=== PATIENT | male | born 1965 | race Caucasian/White ===

== ENCOUNTER 2017-09-05 21:25 | Emergency (ER) | payer OTHER ==
[~2017-09-05] VITALS: Ht 180.3 cm; Wt 65.3 kg
[~2017-09-05 21:25] MED LIST: AZIT250 PO; CRUTCH4 USE; CYCL10 PO; HYDACE5 PO; IBUP800 PO; NAPR500 PO; PENVK500 PO; PHENY100ER PO
[2017-09-05] MEDS ORDERED: Zithromax250 MG PO (21:49)
[2017-09-05] MEDS ORDERED: BENZ100A PO (21:49)
[2017-09-05] MEDS ORDERED: CLARITIN10 MG PO (21:50)
== END 2017-09-05 22:05 | disposition home or self-care (01) ==
LOC: ER 21:25
DX: J44.1 Chronic obstructive pulmonary disease with (acute) exacerbation (principal)
CPT/HCPCS: 99283

== ENCOUNTER 2020-12-15 17:53 | Inpatient (IN) | payer OTHER ==
[~2020-12-15] VITALS: Ht 172.7 cm; Wt 95.2 kg
[~2020-12-15 17:53] MED LIST changes: +BENZ100A PO; +CLARITIN10 MG PO; +Zithromax250 MG PO
[2020-12-15 18:31] LABS: BASOPHILS ABSOLUTE AUTO 0.01 K/mm3 (0.00-0.23); BASOPHILS PERCENT AUTO 0 % (0-2); EOSINOPHILS ABSOLUTE AUTO 0.01 K/mm3 (0.00-0.68); EOSINOPHILS PERCENT AUTO 0 % (0-6); Hematocrit 54.7 % (37.0-53.0); Hemoglobin 17.9 g/dL (13.5-17.5); IMMATURE GRAN ABSOLUTE AUTO 0.02 K/mm3 (0.00-0.10); IMMATURE GRAN PERCENT AUTO 0 % (0-1); LYMPHOCYTES ABSOLUTE AUTO 0.77 K/mm3 (0.84-5.20); LYMPHOCYTES PERCENT AUTO 12 % (21-46); MONOCYTES ABSOLUTE AUTO 1.01 K/mm3 (0.16-1.47); MONOCYTES PERCENT AUTO 15 % (4-13); Mean Corpuscular HGB 34.4 pg (26.0-34.0); Mean Corpuscular HGB Conc 32.7 g/dL (31.5-36.5); Mean Corpuscular Volume 105 fL (80-100); Mean Platelet Volume 12.1 fL (9.1-12.4); NEUTROPHILS ABSOLUTE AUTO 4.77 K/mm3 (1.96-9.15); NEUTROPHILS PERCENT AUTO 72 % (41-73); NRBC ABSOLUTE 0.04 K/mm3 (0.00-0.02); NRBC Auto 0.6 /100 WBC (0.0-0.2); Platelet Count 146 K/mm3 (150-400); RDW Coefficient Variation 19.4 % (11.7-14.2); Red Blood Cell Count 5.21 M/mm3 (4.30-5.90); White Blood Cell Count 6.59 K/mm3 (4.00-11.30)
[2020-12-15 18:50] LABS: Alanine Aminotransfer (ALT/SGP 122 U/L (12-78); Albumin, Blood 3.2 g/dL (3.4-5.0); Albumin/Globulin Ratio 0.7 (0.8-1.8); Alk Phos 139 U/L (50-136); Anion Gap 3 mmol/L (6-16); Aspartate Aminotrans (AST/SGOT 116 U/L (12-37); Bilirubin, Total 1.4 mg/dL (0.1-1.0); Blood Urea Nitrogen 44 mg/dL (8-24); Bun/Creatinine Ratio 60.3 (12.0-20.0); CO2, Blood 33 mmol/L (21-32); Calcium, Blood 9.1 mg/dL (8.5-10.1); Chloride, Blood 103 mmol/L (98-108); Creatinine, Blood 0.73 mg/dL (0.60-1.20); Globulin, Blood 4.5 g/dL (2.2-4.0); Glomerular Filtration Rate >60 (60-); Glucose, Blood 119 mg/dL (70-99); Potassium, Blood 4.7 mmol/L (3.5-5.5); Sodium, Blood 139 mmol/L (136-145); Total Protein, Blood 7.7 g/dL (6.4-8.2); Troponin I 0.059 ng/mL (0.000-0.040)
[2020-12-15 19:06] LABS: Base Excess Venous 6.5 mmol/L; Bicarbonate Venous 26.3 mmol/L (24.0-30.0); PCO2 Venous 81.2 mmHg (38-42); PO2 Venous 58.5 mmHg (38-42); pH Blood Venous 7.23 (7.34-7.37)
[2020-12-15 19:30] LABS: SARS-Cov-2 (COVID-19) PCR, MMC NEGATIVE (NEGATIVE)
[2020-12-15 22:24] LABS: Source, Urine Clean Catch
[2020-12-15 22:29] LABS: Appearance, Urine Clear (Clear); Bilirubin, Urine Neg (Neg); Blood, Urine Neg (Neg); Color, Urine Yellow (P-Yellow); Glucose Qualitative, Urine Neg (Neg); Ketones, Urine Neg (Neg); Leukocyte Esterase, Urine Neg (Neg); Nitrite, Urine Neg (Neg); Protein, Urine Neg (Neg); Urobilinogen, Urine NORM (Normal)
[2020-12-16 02:34] LABS: BASOPHILS ABSOLUTE AUTO 0.01 K/mm3 (0.00-0.23); BASOPHILS PERCENT AUTO 0 % (0-2); EOSINOPHILS PERCENT AUTO 0 % (0-6); Hematocrit 48.7 % (37.0-53.0); Hemoglobin 16.3 g/dL (13.5-17.5); IMMATURE GRAN ABSOLUTE AUTO 0.03 K/mm3 (0.00-0.10); IMMATURE GRAN PERCENT AUTO 1 % (0-1); LYMPHOCYTES ABSOLUTE AUTO 0.34 K/mm3 (0.84-5.20); LYMPHOCYTES PERCENT AUTO 6 % (21-46); MONOCYTES ABSOLUTE AUTO 0.48 K/mm3 (0.16-1.47); MONOCYTES PERCENT AUTO 9 % (4-13); Mean Corpuscular HGB 34.5 pg (26.0-34.0); Mean Corpuscular HGB Conc 33.5 g/dL (31.5-36.5); Mean Corpuscular Volume 103 fL (80-100); Mean Platelet Volume 11.6 fL (9.1-12.4); NEUTROPHILS ABSOLUTE AUTO 4.79 K/mm3 (1.96-9.15); NEUTROPHILS PERCENT AUTO 85 % (41-73); NRBC ABSOLUTE 0.04 K/mm3 (0.00-0.02); NRBC Auto 0.7 /100 WBC (0.0-0.2); Platelet Count 99 K/mm3 (150-400); RDW Coefficient Variation 18.1 % (11.7-14.2); Red Blood Cell Count 4.73 M/mm3 (4.30-5.90); White Blood Cell Count 5.65 K/mm3 (4.00-11.30)
[2020-12-16 02:43] LABS: CPK Creatine Kinase 128 U/L (39-308)
[2020-12-16 02:53] LABS: Alanine Aminotransfer (ALT/SGP 105 U/L (12-78); Albumin, Blood 2.5 g/dL (3.4-5.0); Albumin/Globulin Ratio 0.6 (0.8-1.8); Alk Phos 123 U/L (50-136); Anion Gap 4 mmol/L (6-16); Aspartate Aminotrans (AST/SGOT 83 U/L (12-37); Bilirubin, Total 1.1 mg/dL (0.1-1.0); Blood Urea Nitrogen 39 mg/dL (8-24); Bun/Creatinine Ratio 57.6 (12.0-20.0); CO2, Blood 33 mmol/L (21-32); Calcium, Blood 8.5 mg/dL (8.5-10.1); Chloride, Blood 104 mmol/L (98-108); Creatinine, Blood 0.68 mg/dL (0.60-1.20); Globulin, Blood 4.1 g/dL (2.2-4.0); Glomerular Filtration Rate >60 (60-); Glucose, Blood 104 mg/dL (70-99); Potassium, Blood 4.7 mmol/L (3.5-5.5); Sodium, Blood 141 mmol/L (136-145); Total Protein, Blood 6.6 g/dL (6.4-8.2)
[2020-12-16 05:15] LABS: PCO2 Arterial > 105 mmHg (35-45); PO2 Arterial 127 mmHg (80-100); pH Blood Arterial 7.17 (7.35-7.45)
--- NOTE | 2020-12-16 07:13 | NUR ---
ADMISSION PATIENT ARRIVED TO PCU 8 FROM ER VIA GURNEY WITH BIPAP IN PLACE 14/8/35%. PATIENT SLID OVER TO PCU BED WITH SLIDER SHEET. SEE ADMISSION ASSESSMENT. EXCORIATIONS TO GROIN AREA, PICTURES IN CHART. PATIENT NOT WELL EDUCATED IN HEALTH, LOTS OF TIME TAKEN TO EXPLAIN PROCEDURES AND MEDICATIONS TO PATIENT. PATIENT AT ONE POINT WANTING TO LEAVE AMA DUE TO WANTING TO EAT BUT BIPAP IN PLACE. SHIFT SUMMARY PATIENT ALERT AND ORIENTED X3 FOR MOST OF SHIFT. PATIENT HAD A PERIOD OF TIME WITH BIPAP OFF DUE TO REFUSAL AND HIGH FLOW NASAL CANNULA WAS PUT IN PLACE AT 15L. TITRATING OXYGEN TO KEEP OXYGEN SATURATION AT 90-92%. PATIENT BECAME MORE LETHARGIC, ABG WITH CRITICAL PH AND CO2, BIPAP PLACED BACK ON PATIENT WITH SETTING OF 22/6/40% FIO2, OXYGEN SATURATION ABOVE 90%. ORDER FOR ALBRIGHT OBTAINED BY PRODUCT MARKETING COORDINATOR BUT OPTED TO NOT PLACE DUE TO PATIENT VOIDING IN URINAL, AND SWELLING TO PENIS. BED ALARM IN PLACE.
[2020-12-16 09:30] LABS: Source, Urine Catheter
[2020-12-16 09:41] LABS: Appearance, Urine Clear (Clear); Bilirubin, Urine Neg (Neg); Blood, Urine 1+ (Neg); Color, Urine Yellow (P-Yellow); Glucose Qualitative, Urine Neg (Neg); Ketones, Urine Neg (Neg); Leukocyte Esterase, Urine Neg (Neg); Nitrite, Urine Neg (Neg); Protein, Urine Neg (Neg); Urobilinogen, Urine NORM (Normal)
[2020-12-16 09:53] LABS: Bacteria Not Seen /hpf; Squamous Epithelial Cells Rare /hpf (Few); White Blood Cells, Urine 0-2 /hpf (0-5)
[2020-12-16 10:56] LABS: Troponin I 0.028 ng/mL (0.000-0.040)
--- NOTE | 2020-12-16 11:20 | NUR ---
CARE NOTE PT GROIN AREA VERY SWOLLEN. CHARMAINE SEXTON AND ERMA RN AT BEDSIDE DURING INSERTION.
--- NOTE | 2020-12-16 11:34 | NUR ---
ASSUMPTION OF CARE NOTE PT ALERT TO SELF, SLOW TO RESPOND BUT CAN ANSWER QUESTIONS APPROPTIATELY. SPO2 >90% VIA BIPAP, PRESSURES 22/6, FIO2 30%. EDEMA 2+ NOTED IN BILATERAL LOWER EXTREMETIES. GROIN AREA ALSO VERY SWOLLEN. PT APPEARS TO BE SLEEPING MOST OF AM. CALL LIGHT IN REACH. WILL CONTINUE TO MONITOR.
--- NOTE | 2020-12-16 11:45 | NUR ---
ECHOCARDIOGRAM COMPLETE
[2020-12-16 12:47] LABS: Base Excess Venous 13.2 mmol/L; PCO2 Venous 58.2 mmHg (38-42); PO2 Venous 72.9 mmHg (38-42); pH Blood Venous 7.42 (7.34-7.37)
--- NOTE | 2020-12-16 16:49 | NUR ---
SHIFT SUMMARY PT ALERT TO SELF, SLOW TO RESPOND ABLE TO MAKE NEEDS KNOWN AND REDIRECTABLE. PT HAS BEEN SLEEPING FOR MAJORITY OF SHIFT, DROWSY BUT WILL RESPOND TO VERBAL STIMULI. SPO2 >90% VIA BIPAP, PRESSURES 18/8 @ 30% FIO2. ALBRIGHT REMAINS IN PLACE AND DRAINING WELL W/ GRAVITY CLEAR YELLOW OUTPUT. PT IS DROWSEY AND UNABLE TO STAY AWAKE THROUGH CONVERSATION. DECISION STILL REMAINS TO KEEP PT NPO UNTIL ABLE TO STAY AWAKE FOR DURATION OF TIME. VITAL SIGNS CONTINUE TO STAY STABLE T/O SHIFT. WET COARSE COUGH NOTED. THIS NURSE SPOKE WITH FAMILY AND PROVIDED UPDATE. FAMILY INFORMED OF VISITING HOURS. NO OTHER ACUTE CHANGES NOTED. WILL CONTINUE TO MONITOR.
[2020-12-17 03:44] LABS: Base Excess Venous 17.5 mmol/L; PCO2 Venous 79.1 mmHg (38-42); PO2 Venous 73.9 mmHg (38-42); pH Blood Venous 7.35 (7.34-7.37)
[2020-12-17 04:20] LABS: Magnesium, Blood 1.9 mg/dL (1.6-2.4)
[2020-12-17 04:23] LABS: Anion Gap Unable to Calculate mmol/L (6-16); Blood Urea Nitrogen 32 mg/dL (8-24); Bun/Creatinine Ratio 51.5 (12.0-20.0); CO2, Blood 42 mmol/L (21-32); Calcium, Blood 8.1 mg/dL (8.5-10.1); Chloride, Blood 103 mmol/L (98-108); Creatinine, Blood 0.62 mg/dL (0.60-1.20); Glomerular Filtration Rate >60 (60-); Glucose, Blood 128 mg/dL (70-99); Potassium, Blood 3.8 mmol/L (3.5-5.5); Sodium, Blood 144 mmol/L (136-145)
--- NOTE | 2020-12-17 06:07 | NUR ---
SHIFT SUMMARY PT HAS SLEPT OFF AND ON THROUGH THE NIGHT. PT HAS BEEN A&O X3. PT HAS WOKEN UP AND ASKED FOR SNACKS AND DRINKS MULTIPLE TIMES. PT HAS NEEDED SOME DIRECTIONS TO BE REPEATED MULTIPLE TIMES OR REWORDED. AT TIMES PT HAS SEEMED UNAROUSABLE, IT WAS DISCOVERED THAT THE PT WAS SIMPLY IGNORING THE INTERACTION. SPO2 HAS REMAINED >90% ON 2-4L NC AND ON BIPAP. VSS. NO C/O. PT DENIES PAIN/DISCOMFORT.
--- NOTE | 2020-12-17 08:06 | NUR ---
ASSUMPTION OF CARE NOTE PT ALERT AND ORIENTED X 4. SHE IS PLEASANT AND COOPERATIVE WITH CARE. PT DENIED FEELINGS OF NAUSEA/VOMITING. CHEST PAIN DENIED. PT REPORTED HEADACHE 4/10 AND WAS MEDICATED PER EMAR. NO SHORTNESS OF BREATH NOTED. PT ABLE TO ROLL ON OWN BUT DOES HAVE LIMITATIONS W/ MOVEMENT DUE TO WEAKNESS. PT REPORTED SHE LIVES IN ASSISTED LIVING HOME ON [address]. VITAL SIGNS STABLE. CALL LIGHT IN REACH. WILL CONTINUE TO MONITOR.
--- NOTE | 2020-12-17 11:00 | NUR ---
TRANSFER TO CT PT AT CT NOW, LEFT ROOM AT APROX. 1025. LEFT PERIPHERAL IV IN LEFT AC WAS REMOVED IN CT DUE TO INABILITY TO ACCESS, THIS NURSE AND ROSIE CHASE RN WENT TO CT ANT PUT IN NEW IV IN RIGHT UPPER ARM. PT WAS STABLE UPON TRANSFER. WILL CONTINUE TO MONITOR WHEN RETURNS.
--- NOTE | 2020-12-17 12:44 | NUR ---
PT ARRIVED TO THE MEDICAL FLOOR FROM THE PCU. A/OX3 SLOW TO RESPOND GARBLED SPEECH. ON O2 VIA NC @ 1L/MIN. PT ORIENTED TO THE ROOM LAYOUT AND CALL SYSTEM, CALL LIGHT IN REACH. PT SERVED LUNCH. WILL CONTINUE TO MONITOR AND ASSESS FOR CHANGES
--- NOTE | 2020-12-17 17:04 | NUR ---
PT IS A/OX3, PLEASANT AND COOPERATIVE, APPEARS TO BE BREATHING EASILY AT THIS TIME ON O2 AT 2L/MIN VIA NC. THE PT'S O2 SATS RANGE FROM 88-92%, PT DENIES ANY PAIN, PT HAS GOOD APPETITE. PT HAS BEEN BEDREST TODAY DUE TO SOB WITH ACTIVITY. THE PT WAS TRANSFERED UP FROM PCU TODAY. VISITOR AT THE BEDSIDE AT THIS TIME. CALL LIGHT IN REACH. WILL CONTINUE TO MONIOTR AND ASSESS FOR CHANGES
[2020-12-18 05:01] LABS: Blood Urea Nitrogen 23 mg/dL (8-24); Bun/Creatinine Ratio 40.9 (12.0-20.0); Calcium, Blood 7.9 mg/dL (8.5-10.1); Chloride, Blood 96 mmol/L (98-108); Creatinine, Blood 0.56 mg/dL (0.60-1.20); Glomerular Filtration Rate >60 (60-); Glucose, Blood 108 mg/dL (70-99); Magnesium, Blood 1.6 mg/dL (1.6-2.4); Potassium, Blood 3.8 mmol/L (3.5-5.5); Sodium, Blood 143 mmol/L (136-145)
[2020-12-18 05:27] LABS: Anion Gap Unable to Calculate mmol/L (6-16); CO2, Blood >45 mmol/L (21-32)
--- NOTE | 2020-12-18 06:08 | NUR ---
SHIFT SUMMARY: PT IS ALERT AND ORIENTED. PT IS CALM AND COOPERATIVE WITH CARE. PT DID NOT USE HIS CALL LIGHT OVERNIGHT. PT IS SLOW TO RESPOND AND HAS GARBLED SPEECH WHICH CAN BE DIFFICULT TO UNDERSTAND. PT REQUIRES MAX ASSIST FOR TRANSFERS, NOT OUT OF BED OVERNIGHT. PT DENIES PAIN, NAUSEA, VOMITING AND SOB. NO ACUTE CHANGES THIS SHIFT. BED IN LOW POSITION, CALL LIGHT WITHIN REACH. WILL REPORT TO DAY NURSE.
--- NOTE | 2020-12-18 18:21 | NUR ---
The patient is A/OX 4 TO person, place, time and event. The patient is pleasent and cooperative with care. He is has some speech defficits due to missing teeth and he is slow to respond. The patient is chair bound and a 2 prsn assist. He is on 2lpm NS and denies any SOB or chest pain. The patient has been on laxis this shift and has a kincaid cath in place see I/O for urine output. The patient has pitting edema on the legs and the abd. There were no acute changes this shift. The patient is currently lying in his bed watching tv.
--- NOTE | 2020-12-18 22:18 | NUR ---
2147 PT IS AAO X 4 BUT IS SLOW TO RESPONG. ON 2.5L NC O2 AT 87%. RONCHI IN BASES OF LUNGS, EXPIRATORY WHEEZE IN L LOBES, DENIES SOB, HAS NON PRODUCTIVE COUGH. REPORTS PAIN IN BOTTOM, ACHES, 6/10, GAVE TYLENOL, WILL EVAL FOR EFFECT. DENIES NEED FOR ANYTHING ELSE AT THIS TIME. NO OTHER APPARENT SIGNS OF DISTRESS. CALL LIGHT IS IN REACH.
--- NOTE | 2020-12-19 04:44 | NUR ---
0000 PT LYING IN BED, APPEARS TO BE RESTING, BREATHING IS EVEN, UNLABORE. NO APPARENT SIGNS OF DISTRESS. CALL LIGHT IS IN REACH.
--- NOTE | 2020-12-19 04:45 | NUR ---
0200 PT LYING IN BED, EYES CLOSED, APPEARS TO BE RESTING. BREATHING IS EVEN, UNLABORED. NO APPARENT SIGNS OF DISTRESS. CALL LIGHT IS IN REACH.
--- NOTE | 2020-12-19 04:45 | NUR ---
PT LYING IN BED, EYES CLOSED, APPEARS TO BE RESTING. WAKES EASILY TO VERBAL STIMULI. NO APPARENT SIGNS OF DISTRESS. CALL LIGHT IS IN REACH.
[2020-12-19 04:55] LABS: Hematocrit 48.7 % (37.0-53.0); Hemoglobin 15.6 g/dL (13.5-17.5); Mean Corpuscular HGB 33.7 pg (26.0-34.0); Mean Corpuscular Volume 105 fL (80-100); Mean Platelet Volume 11.2 fL (9.1-12.4); Platelet Count 114 K/mm3 (150-400); RDW Coefficient Variation 17.3 % (11.7-14.2); RDW Standard Deviation 65.4 fL (35.1-46.3); Red Blood Cell Count 4.63 M/mm3 (4.30-5.90); White Blood Cell Count 5.72 K/mm3 (4.00-11.30)
--- NOTE | 2020-12-19 05:02 | NUR ---
PT LYING IN BED, AAO X 4, SLOW TO RESPOND. NC 2.5L O2 AT 98%. PT DENIES SOB, LUNGS HAVE RONCHI IN BASES, EXP WHEEZE L LOBES, NON PRODUCTIVE COUGH. PT HAD PAIN IN BOTTOM, GOT TYLENOL AT HS.
[2020-12-19 05:16] LABS: Blood Urea Nitrogen 21 mg/dL (8-24); Bun/Creatinine Ratio 45.5 (12.0-20.0); Calcium, Blood 8.2 mg/dL (8.5-10.1); Chloride, Blood 91 mmol/L (98-108); Creatinine, Blood 0.46 mg/dL (0.60-1.20); Glomerular Filtration Rate >60 (60-); Glucose, Blood 100 mg/dL (70-99); Magnesium, Blood 1.7 mg/dL (1.6-2.4); Potassium, Blood 4.2 mmol/L (3.5-5.5); Sodium, Blood 137 mmol/L (136-145)
[2020-12-19 05:28] LABS: Anion Gap Unable to Calculate mmol/L (6-16)
[2020-12-19 05:31] LABS: CO2, Blood >45 mmol/L (21-32)
--- NOTE | 2020-12-19 06:11 | NUR ---
PT LYING IN BED, EYES CLOSED, APPEARS TO BE RESTING. BREATHING IS EVEN, UNLABORED. NO APPARENT SIGNS OF DISTRESS. CALL LIGHT IS IN REACH. NO OTHER CHANGES THIS SHIFT.
--- NOTE | 2020-12-19 06:20 | NUR ---
ATTEMPTED TO CALL DR RADHA ARRIAGA, DR DID NOT CALL BACK, WILL LET DAY SHIFT KNOW.
[2020-12-20 05:26] LABS: Anion Gap 0 mmol/L (6-16); Blood Urea Nitrogen 20 mg/dL (8-24); Bun/Creatinine Ratio 40.7 (12.0-20.0); CO2, Blood 42 mmol/L (21-32); Calcium, Blood 8.2 mg/dL (8.5-10.1); Chloride, Blood 92 mmol/L (98-108); Creatinine, Blood 0.49 mg/dL (0.60-1.20); Glomerular Filtration Rate >60 (60-); Glucose, Blood 87 mg/dL (70-99); Potassium, Blood 4.8 mmol/L (3.5-5.5); Sodium, Blood 134 mmol/L (136-145)
--- NOTE | 2020-12-20 06:02 | NUR ---
55 year old MAle with acute rt sided heart failure resp failure was transitioned to oral steroids & PT eval & treatment started. PT has patent kincaid cath due to intense diuresis for CHF. Anasarca improving. PT has rash to bilat groins & redness to sacral area. Sacral foam applied to prevent further skin breakdown. Has some developmental delays reported by day RN who said Mother confirms he was premature infant with some cognitive deficits. Support offered fall precautions, up with 2 FWW GB.
[2020-12-20 15:22] LABS: SARS-Cov-2 (COVID-19) PCR, MMC NEGATIVE (NEGATIVE)
--- NOTE | 2020-12-20 18:45 | NUR ---
NO ACUTE CHANGES PT TRANFERING TO [facility]. REPORT CALLED OVER AND WAITING FOR TRANSPORT. PT GIVEN STOOL SOFTNER AND WAS ABLE TO HAVE A LARGE FORMED BM TODAY. PT TURNED Q2 HRS. NO DISTRESS NOTED AT THIS TIME CALL LIGHT WITHIN REACH.
--- NOTE | 2020-12-20 19:15 | NUR ---
ASSUMED CARE RECEIVED REPORT FROM DARSHAN ALFARO. PT RESTING, IN NAD. AWAITING DISCHARGE TO [facility]. NO ACUTE NEEDS ASSESSED AT THIS TIME. CALL LIGHT, POSSESSIONS IN REACH, BED IN LOW AND LOCKED POSITION WITH ALARMS ON.
--- NOTE | 2020-12-20 21:30 | NUR ---
THIS RN CALLED BY JOLIE, EMPLOYEE AT THE [facility], INQUIRING REGARDING PT'S STATUS FOR DISCHARGE AND IF TRANSPORT HAD ARRIVED TO [employer] PT. INFORMED BY THIS RN THAT TRANSPORT HAD NOT YET ARRIVED. PATRICE, AEMT NOTIFIED OF THE ISSUE, WHO THEN REACHED OUT TO [facility], TO INQUIRE ABOUT TRANSPORTING THE PT TO THE [facility]. STAFF WAS INFORMED THAT [facility] REFUSED TO TRANSPORT PT, AND WAS TOLD THAT ARRANGEMENTS MUST BE MADE AT 0800 THE NEXT MORNING (12/21/20).
--- NOTE | 2020-12-21 04:53 | NUR ---
SHIFT SUMMARY PT HAS HAD AN UNEVENTFUL NIGHT. APPEARED TO SLEEP T/O. NO ACUTE CHANGES OR CONCERNS TO REPORT IN CONDITION. NO ACUTE NEEDS ASSESSED AT THIS TIME. CALL LIGHT, POSSESSIONS IN REACH, BED IN LOW AND LOCKED POSITION WITH ALARMS ON. WILL CONTINUE TO PROVIDE CARE NEEDED UNTIL REPORT GIVEN TO ONCOMING RN.
[2020-12-21] MEDS ORDERED: DOCUZEN 8.6-501 EACH PO (08:20)
[2020-12-21] MEDS ORDERED: POTCHL20ER PO (08:20)
[2020-12-21] MEDS ORDERED: SPIR25 PO (08:21)
[2020-12-21] MEDS ORDERED: TORSE20 PO (08:21)
--- NOTE | 2020-12-21 11:23 | NUR ---
PT TRANSFERED TO [facility] AT 1115 WITH ALL PERSONAL BELONGINGS. PT IS STILL ON 5L NASAL CANULA. PT WAS A TWO PERSON WITH GA[employer]ELT TO TRANSFER TO WHEELCHAIR. PT VOIDING WELL TODAY CAN BE INCONTENT. NO DISTRESS NOTED. CALL TO [facility] LEFT NUMBER TO CALL THIS CONTROL ROOM AGENT, BUT NO ONE AVAILBLE TO GIVE REPORT THIS MORNING. REPORT WAS CALLED LAST NIGHT PT WAS SCHEDULE TO LEAVE 12/20/20 @ 1800, BUT NO RIDE SHOWED.
== END 2020-12-21 11:17 | DRG 291 ==
LOC: ER 17:53 → PCU 20:27 → ER 21:48 → PCU 22:13 → MEDS 12-17 12:15
PROVIDERS: Family Medicine; Internal Medicine; Physician Assistant; Student in an Organized Health Care Education/Training Program; ADMIT Internal Medicine
DX: I50.811 Acute right heart failure (principal); J96.02 Acute respiratory failure with hypercapnia; J96.01 Acute respiratory failure with hypoxia; J44.0 Chronic obstructive pulmonary disease with (acute) lower respiratory infection; Z20.822 Contact with and (suspected) exposure to COVID-19; Z79.899 Other long term (current) drug therapy; G40.909 Epilepsy, unspecified, not intractable, without status epilepticus; J44.9 Chronic obstructive pulmonary disease, unspecified; R79.89 Other specified abnormal findings of blood chemistry
CPT/HCPCS: 36415; 36600; 51703; 71045; 71260; 80048; 80053; 81001; 81003; 82140; 82550; 82803; 83605; 83735; 83880; 84145; 84484; 85025; 85027; 93005; 93010; 93306; 94640; 94660; 94760; 94762; 96365; 96367; 96375; 97110; 97162; 97530; 99285-25; A9270; J0456; J0696; J1650; J1940; J2930; J7050; Q9967; U0004

== ENCOUNTER 2021-07-05 01:12 | Day surgery (SDC) | payer OTHER ==
[~2021-07-05 01:12] MED LIST changes: +ALBU2.5V5 NEB; +DOCUZEN 8.6-501 EACH PO; +POTCHL20ER PO; +SPIR25 PO; +TORSE20 PO
== END 2021-07-05 22:52 | disposition home or self-care (01) ==
LOC: WOUND 01:12
DX: I87.312 Chronic venous hypertension (idiopathic) with ulcer of left lower extremity (principal); L97.822 Non-pressure chronic ulcer of other part of left lower leg with fat layer exposed; L97.819 Non-pressure chronic ulcer of other part of right lower leg with unspecified severity; R60.0 Localized edema; F17.200 Nicotine dependence, unspecified, uncomplicated; I11.0 Hypertensive heart disease with heart failure; I50.9 Heart failure, unspecified; J43.9 Emphysema, unspecified; I87.2 Venous insufficiency (chronic) (peripheral); Z72.3 Lack of physical exercise
CPT/HCPCS: A9270; G0463

== ENCOUNTER 2021-07-19 02:30 | Day surgery (SDC) | payer OTHER | END 2021-07-19 23:59 | disposition home or self-care (01) | LOC: WOUND 02:30 | DX: I87.312 Chronic venous hypertension (idiopathic) with ulcer of left lower extremity (principal); L97.821 Non-pressure chronic ulcer of other part of left lower leg limited to breakdown of skin; L97.811 Non-pressure chronic ulcer of other part of right lower leg limited to breakdown of skin; F17.200 Nicotine dependence, unspecified, uncomplicated; I11.0 Hypertensive heart disease with heart failure; I50.9 Heart failure, unspecified; J43.9 Emphysema, unspecified; Z72.3 Lack of physical exercise | CPT/HCPCS: A9270; G0463 ==

== ENCOUNTER 2021-08-04 05:28 | Day surgery (SDC) | payer OTHER | END 2021-08-04 23:09 | disposition home or self-care (01) | LOC: WOUND 05:28 | DX: I87.313 Chronic venous hypertension (idiopathic) with ulcer of bilateral lower extremity (principal); L97.812 Non-pressure chronic ulcer of other part of right lower leg with fat layer exposed; L97.821 Non-pressure chronic ulcer of other part of left lower leg limited to breakdown of skin; I87.2 Venous insufficiency (chronic) (peripheral); F17.200 Nicotine dependence, unspecified, uncomplicated; R60.0 Localized edema; I10 Essential (primary) hypertension; J43.9 Emphysema, unspecified; I73.9 Peripheral vascular disease, unspecified; Z72.3 Lack of physical exercise | CPT/HCPCS: 99406; A9270; G0463 ==

== ENCOUNTER 2021-08-18 08:00 | Day surgery (SDC) | payer OTHER | END 2021-08-18 23:59 | disposition home or self-care (01) | LOC: WOUND 08:00 | DX: I87.312 Chronic venous hypertension (idiopathic) with ulcer of left lower extremity (principal); L97.821 Non-pressure chronic ulcer of other part of left lower leg limited to breakdown of skin; L97.812 Non-pressure chronic ulcer of other part of right lower leg with fat layer exposed; I87.2 Venous insufficiency (chronic) (peripheral); F17.200 Nicotine dependence, unspecified, uncomplicated; R60.0 Localized edema; I10 Essential (primary) hypertension; I73.9 Peripheral vascular disease, unspecified; J43.9 Emphysema, unspecified; Z72.3 Lack of physical exercise | CPT/HCPCS: 99406; A9270; G0463 ==

== ENCOUNTER 2021-09-19 05:18 | Day surgery (SDC) | payer OTHER | END 2021-09-19 23:56 | disposition home or self-care (01) | LOC: WOUND 05:18 | DX: I87.312 Chronic venous hypertension (idiopathic) with ulcer of left lower extremity (principal); F17.200 Nicotine dependence, unspecified, uncomplicated; L97.222 Non-pressure chronic ulcer of left calf with fat layer exposed; R60.0 Localized edema; J43.9 Emphysema, unspecified; I11.0 Hypertensive heart disease with heart failure; I50.9 Heart failure, unspecified; L03.116 Cellulitis of left lower limb | CPT/HCPCS: 99406; G0463 ==

== ENCOUNTER → 2021-09-26 | Day surgery (SDC) | payer OTHER | LOC: WOUND 03:32 | DX: I87.312 Chronic venous hypertension (idiopathic) with ulcer of left lower extremity (principal); L97.222 Non-pressure chronic ulcer of left calf with fat layer exposed; F17.200 Nicotine dependence, unspecified, uncomplicated; I10 Essential (primary) hypertension; R60.0 Localized edema; J43.9 Emphysema, unspecified; L03.116 Cellulitis of left lower limb; I87.2 Venous insufficiency (chronic) (peripheral) | CPT/HCPCS: 99406; A9270; G0463 ==

== ENCOUNTER 2021-10-10 01:14 | Day surgery (SDC) | payer OTHER | END 2021-10-11 00:19 | disposition home or self-care (01) | LOC: WOUND 01:14 | DX: I87.312 Chronic venous hypertension (idiopathic) with ulcer of left lower extremity (principal); L97.828 Non-pressure chronic ulcer of other part of left lower leg with other specified severity; F17.200 Nicotine dependence, unspecified, uncomplicated; R60.0 Localized edema; I10 Essential (primary) hypertension; J43.9 Emphysema, unspecified; L03.116 Cellulitis of left lower limb | CPT/HCPCS: G0463 ==

== ENCOUNTER 2021-10-18 00:17 | Day surgery (SDC) | payer OTHER | END 2021-10-18 23:05 | disposition home or self-care (01) | LOC: WOUND 00:17 | DX: I87.312 Chronic venous hypertension (idiopathic) with ulcer of left lower extremity (principal); I87.2 Venous insufficiency (chronic) (peripheral); F17.200 Nicotine dependence, unspecified, uncomplicated; I11.0 Hypertensive heart disease with heart failure; I50.9 Heart failure, unspecified; J43.9 Emphysema, unspecified; L03.116 Cellulitis of left lower limb; L97.222 Non-pressure chronic ulcer of left calf with fat layer exposed | CPT/HCPCS: G0463 ==

== ENCOUNTER 2025-02-10 15:55 | Inpatient (IN) | payer OTHER ==
[~2025-02-10] VITALS: Ht 180.3 cm; Wt 66.5 kg
[2025-02-10 16:34] LABS: BASOPHILS ABSOLUTE AUTO 0.02 K/mm3 (0.00-0.23); BASOPHILS PERCENT AUTO 0 % (0-2); EOSINOPHILS ABSOLUTE AUTO 0.03 K/mm3 (0.00-0.68); EOSINOPHILS PERCENT AUTO 1 % (0-6); Hematocrit 53.9 % (37.0-53.0); Hemoglobin 17.6 g/dL (13.5-17.5); IMMATURE GRAN ABSOLUTE AUTO 0.00 K/mm3 (0.00-0.10); IMMATURE GRAN PERCENT AUTO 0 % (0-1); LYMPHOCYTES ABSOLUTE AUTO 1.29 K/mm3 (0.84-5.20); LYMPHOCYTES PERCENT AUTO 24 % (21-46); MONOCYTES ABSOLUTE AUTO 0.98 K/mm3 (0.16-1.47); MONOCYTES PERCENT AUTO 18 % (4-13); Mean Corpuscular HGB Conc 32.7 g/dL (31.5-36.5); Mean Corpuscular Volume 100 fL (80-100); NEUTROPHILS ABSOLUTE AUTO 3.02 K/mm3 (1.96-9.15); NEUTROPHILS PERCENT AUTO 56 % (41-73); NRBC ABSOLUTE 0.00 K/mm3 (0.00-0.02); NRBC Auto 0.0 /100 WBC (0.0-0.2); Platelet Count 133 K/mm3 (150-400); RDW Coefficient Variation 14.9 % (11.7-14.2); RDW Standard Deviation 55.3 fL (35.1-46.3)
[2025-02-10] MEDS ORDERED: Albuterol 2.5 MG/3 ML VIAL INH SCH (16:45)
[2025-02-10 17:09] LABS: Alanine Aminotransfer (ALT/SGP 35.0 U/L (12-78); Albumin, Blood 3.7 g/dL (3.4-5.0); Albumin/Globulin Ratio 1.0 (0.8-1.8); Anion Gap 7.0 mmol/L (3-11); Aspartate Aminotrans (AST/SGOT 35.0 U/L (12-37); Bilirubin, Total 0.8 mg/dL (0.1-1.0); Blood Urea Nitrogen 22.0 mg/dL (8-24); CO2, Blood 33.0 mmol/L (21-32); Calcium, Blood 8.7 mg/dL (8.5-10.1); Chloride, Blood 102.0 mmol/L (98-108); Creatinine, Blood 0.57 mg/dL (0.60-1.20); Globulin, Blood 3.8 g/dL (2.2-4.0); Glucose, Blood 94.0 mg/dL (70-99); Potassium, Blood 4.5 mmol/L (3.5-5.5); Sodium, Blood 137.0 mmol/L (136-145); Total Protein, Blood 7.5 g/dL (6.4-8.2)
[2025-02-10 18:47] LABS: pH Blood Venous 7.29 (7.34-7.37)
[2025-02-10] MEDS ORDERED: Ipratropium/Albuterol SulF 2.5-0.5MG/3 ML Amp INH SCH (21:25)
[2025-02-10] MEDS ORDERED: Albuterol 2.5 MG/3 ML VIAL INH PRN (21:25)
[2025-02-10] MEDS ORDERED: FLU VACC TS2025-26(6MOS UP)/PF 45 MCG/0.5 ML SYRINGE IM SCH (21:30)
[2025-02-10] MEDS ORDERED: Ondansetron HCl 2 MG / ML 2ML Vial IV PRN (21:30)
[2025-02-10] MEDS ORDERED: Furosemide 10 MG / ML 2ML Vial IV ONE (22:00)
[2025-02-10 22:26] LABS: pH Blood Venous 7.32 (7.34-7.37)
[2025-02-10] MEDS ORDERED: NS 250 ML IV PRN (23:30)
[2025-02-10 23:55] VITALS: BP 141/82
[2025-02-11 03:37] VITALS: BP 138/68
--- NOTE | 2025-02-11 06:05 | NUR ---
SHIFT SUMMARY- PT WAS ABLE TO MAINTAIN O2 AT 92% AT 4/L NC. AMBULATION- SBA, PT IS WEAK ELIMINATION- BEDSIDE URINAL MEDICATION- WWW
[2025-02-11 06:07] LABS: Hematocrit 47.2 % (37.0-53.0); Hemoglobin 15.4 g/dL (13.5-17.5); Mean Corpuscular HGB Conc 32.6 g/dL (31.5-36.5); Mean Corpuscular Volume 98 fL (80-100); NRBC ABSOLUTE 0.00 K/mm3 (0.00-0.02); NRBC Auto 0.0 /100 WBC (0.0-0.2); Platelet Count 117 K/mm3 (150-400); RDW Coefficient Variation 14.7 % (11.7-14.2); RDW Standard Deviation 54.0 fL (35.1-46.3)
[2025-02-11 06:39] LABS: Anion Gap 9.0 mmol/L (3-11); Blood Urea Nitrogen 28.0 mg/dL (8-24); CO2, Blood 33.0 mmol/L (21-32); Calcium, Blood 8.5 mg/dL (8.5-10.1); Chloride, Blood 98.0 mmol/L (98-108); Creatinine, Blood 0.63 mg/dL (0.60-1.20); Glucose, Blood 156.0 mg/dL (70-99); Magnesium, Blood 1.7 mg/dL (1.6-2.4); Potassium, Blood 3.5 mmol/L (3.5-5.5); Sodium, Blood 136.0 mmol/L (136-145)
[2025-02-11 07:30] VITALS: BP 116/65
[2025-02-11] MEDS ORDERED: Enoxaparin 40 MG/0.4 ML SYR SC SCH (09:00)
[2025-02-11] MEDS ORDERED: Torsemide 20 MG TAB PO SCH (12:00)
[2025-02-11 14:02] VITALS: BP 120/72
--- NOTE | 2025-02-11 15:18 | NUR ---
SHIFT SUMMARY MR TAMAYO IS ORIENTATED TO SELF, PLACE, REASON FOR HOSPITALISATION, NOT MONTH OR YEAR. HE IS UNKEMPT, A LOT OF TANGLES IN HIS HAIR WERE SLOWLY COMBED OUT, HIS SKIN IS DIRTY, HIS LEGS ARE RED, DRY FLAKY SKIN, TOE NAILS ARE LONG AND UNKEMPT. SHOWER CAP AND WIPES WERE USED BUT PT HAS DECLINED TO ACCEPT A SHOWER. HE SAID HE HAS NOT SHOWERED FOR A MONTH. HE IS ON OXYGEN 4L NC, LOW 90S ON CONTINUOUS PULSE OX. HE DENIES FEELING SHORT OF BREATH. HE DOES NOT HAVE OXYGEN AT HOME. HE REPORTS NOT TAKING ANY HOME MEDS FOR 2 YEARS. HE SAID HE COULD NOT AFFORD MEDICATIONS. NURSE ORTHO WAS NOTIFIED OF SITUATION. HIS BROTHER TAYLER VISITED EARLIER TODAY - HE SAID THEY ARE PLANNING TO MOVE UP TO [facility] VERY SOON TO LIVE WITH FAMILY. ON TELEMETRY IN SR. NO CALLS FROM IMMIGRATION JUDGE. MR TAMAYO DENIES C/O PAIN. UP TO THE BATHROOM WITH STAND-BY ASSISTANCE. POOR APPETITE, SNACKS AND SUPPLIMENTS ENCOURAGED. BED LOW, CALL LIGHT IN REACH.
[2025-02-11 16:03] VITALS: BP 123/75
[2025-02-11 20:36] VITALS: BP 111/69
[2025-02-11 23:21] VITALS: BP 105/63
[2025-02-12 04:09] VITALS: BP 114/74
--- NOTE | 2025-02-12 05:05 | NUR ---
SHIFT SUMMARY- THE PATIENT WAS ABLE TO MAINTAIN AN OXYGEN SATURATION LEVEL OF 92% ON 4/L VIA NC. HE DID NOT APPEAR TO SLEEP MUCH OVERNIGHT, BUT REPORTS FEELING COMFORTABLE. AMBULATION- SBA, PT IS WEAK ELIMINATION- BEDSIDE URINAL MEDICATION- WHOLE WITH WATER
[2025-02-12 06:33] LABS: Anion Gap 5.0 mmol/L (3-11); Blood Urea Nitrogen 38.0 mg/dL (8-24); CO2, Blood 38.0 mmol/L (21-32); Calcium, Blood 8.7 mg/dL (8.5-10.1); Chloride, Blood 99.0 mmol/L (98-108); Creatinine, Blood 0.8 mg/dL (0.60-1.20); Glucose, Blood 128.0 mg/dL (70-99); Potassium, Blood 4.6 mmol/L (3.5-5.5); Sodium, Blood 137.0 mmol/L (136-145)
[2025-02-12 08:13] VITALS: BP 123/81
--- NOTE | 2025-02-12 10:30 | NUR ---
PALLIATIVE CARE CONSULT: CONSULT RECEIVED FOR ADVANCED CARE PLANNING. REVIEWED MEDICAL RECORD. NO POLST/AD FOUND OF FILE OR WITH [facility].
[2025-02-12 11:46] VITALS: BP 129/79
[2025-02-12] MEDS ORDERED: LOSA50 PO (15:30)
[2025-02-12] MEDS ORDERED: FURO40 PO (15:31)
[2025-02-12] MEDS ORDERED: TRELEGY ELLIPT1 EAC1 INH (15:32)
[2025-02-12] MEDS ORDERED: PHENY100ER PO (15:32)
[2025-02-12] MEDS ORDERED: TORSE20 PO (17:02)
[2025-02-12] MEDS ORDERED: PRED20 PO (17:04)
[2025-02-12] MEDS ORDERED: PANT20 PO (17:05)
[2025-02-12] MEDS ORDERED: AZIT250 PO (17:05)
--- NOTE | 2025-02-12 18:11 | NUR ---
PT DISCHARGED VIA W/C TO BE TAKEN HOME BY HIS BROTHER. DISCHARGE INSTRUCTIONS PROVIDED TO PT AND HIS BROTHER AT THE BEDSIDE, PT VERBALIZED UNDERSTANDING.
== END 2025-02-12 17:39 | disposition home health service (06) | DRG 189 ==
LOC: ER 15:55 → MEDS 21:26
PROVIDERS: Internal Medicine; Nurse Practitioner Acute Care; Student in an Organized Health Care Education/Training Program; ADMIT Internal Medicine
PROC: 5A09357 Assistance with Respiratory Ventilation, Less than 24 Consecutive Hours, Continuous Positive Airway Pressure (ICD-10-PCS; principal; 2025-02-11)
DX: J96.21 Acute and chronic respiratory failure with hypoxia (principal); I50.33 Acute on chronic diastolic (congestive) heart failure; J44.1 Chronic obstructive pulmonary disease with (acute) exacerbation; E87.29 Other acidosis; J96.22 Acute and chronic respiratory failure with hypercapnia; F17.210 Nicotine dependence, cigarettes, uncomplicated; F89 Unspecified disorder of psychological development; T50.2X6A Underdosing of carbonic-anhydrase inhibitors, benzothiadiazides and other diuretics, initial encounter; G40.909 Epilepsy, unspecified, not intractable, without status epilepticus; Z71.6 Tobacco abuse counseling; Z91.138 Patient's unintentional underdosing of medication regimen for other reason
CPT/HCPCS: 36415; 71046; 80048; 80053; 82803; 83735; 83880; 84443; 85025; 85027; 85379; 93005; 93010; 93306; 94640; 94664; 94761; 94762; 99285-25; A9270; J0456; J1938; J2919; J7050; J7512